=== PATIENT | male | born 1995 | race Caucasian/White ===

== ENCOUNTER 2018-10-10 21:07 | Emergency (ER) | payer OTHER ==
[~2018-10-10] VITALS: Ht 175.3 cm; Wt 79.8 kg
[2018-10-10 21:54] LABS: INFLUENZA A ANTIGEN None Detected (None Detect); INFLUENZA B ANTIGEN None Detected (None Detect)
[2018-10-10] MEDS ORDERED: KEFLEX500 M1 PO (22:21)
[2018-10-10] MEDS ORDERED: TESSALON PERLE100 MG PO (22:21)
[2018-10-10] MEDS ORDERED: ROBITUSSIN100 MG/53 PO (22:21)
[2018-10-10] MEDS ORDERED: ACETAMINOPHEN-1 EAC1 PO (22:21)
[2018-10-10 22:50] VITALS: BP 119/64
== END 2018-10-10 22:50 | disposition home or self-care (01) ==
LOC: M.ERS 21:07
PROVIDERS: Physician Assistant
DX: J20.9 Acute bronchitis, unspecified (principal); F17.200 Nicotine dependence, unspecified, uncomplicated

== ENCOUNTER 2019-08-24 13:12 | Emergency (ER) | payer OTHER ==
[~2019-08-24] VITALS: Ht 175.3 cm; Wt 84.8 kg
[~2019-08-24 13:12] MED LIST: ACETAMINOPHEN-1 EAC1 PO; KEFLEX500 M1 PO; ROBITUSSIN100 MG/53 PO; TESSALON PERLE100 MG PO
[2019-08-24 13:43] LABS: INFLUENZA A ANTIGEN Negative (Negative); INFLUENZA B ANTIGEN Negative (Negative)
[2019-08-24] MEDS ORDERED: AMOXICILLIN 50500 MG PO (14:03)
[2019-08-24 14:17] VITALS: BP 133/86
== END 2019-08-24 14:18 | disposition home or self-care (01) ==
LOC: M.ERS 13:12
PROVIDERS: Nurse Practitioner Family
DX: J02.0 Streptococcal pharyngitis (principal); F17.210 Nicotine dependence, cigarettes, uncomplicated

== ENCOUNTER 2019-12-09 09:18 | Emergency (ER) | payer OTHER ==
[~2019-12-09] VITALS: Ht 175.3 cm; Wt 86.2 kg
[~2019-12-09 09:18] MED LIST changes: +AMOXICILLIN 50500 MG PO
[2019-12-09] MEDS ORDERED: SSD CREAM 1% 5050 GM TOP (09:40)
[2019-12-09 09:55] VITALS: BP 160/56
== END 2019-12-09 10:00 | disposition home or self-care (01) ==
LOC: M.ERS 09:18
DX: T21.22XA Burn of second degree of abdominal wall, initial encounter (principal); X12.XXXA Contact with other hot fluids, initial encounter; Y93.89 Activity, other specified; Y92.89 Other specified places as the place of occurrence of the external cause; Y99.8 Other external cause status

== ENCOUNTER 2020-01-10 13:29 | Emergency (ER) | payer OTHER ==
[~2020-01-10] VITALS: Ht 177.8 cm; Wt 86.2 kg
[~2020-01-10 13:29] MED LIST changes: +SSD CREAM 1% 5050 GM TOP
[2020-01-10] MEDS ORDERED: KEFLEX500 M1 PO (14:23)
[2020-01-10 14:36] VITALS: BP 166/82
== END 2020-01-10 14:37 | disposition home or self-care (01) ==
LOC: M.ERS 13:29
DX: S91.332A Puncture wound without foreign body, left foot, initial encounter (principal); W29.8XXA Contact with other powered hand tools and household machinery, initial encounter; Y93.89 Activity, other specified; Y92.89 Other specified places as the place of occurrence of the external cause; Y99.8 Other external cause status